=== PATIENT | male | born 1965 | race African-American/Black ===

== ENCOUNTER 2023-07-25 12:28 | Outpatient (CLI) | payer BC ==
[2023-07-25] MEDS ORDERED: E-Z-HD 98% W/W 340GM BOT (x-ray ONLY) ONE (12:44)
[2023-07-25] MEDS ORDERED: Barium Sulfate 96% 176 GM BOT (xray ONLY) ONE (12:44)
== END 2023-07-25 12:29 | disposition home or self-care (01) ==
LOC: RAD 12:28
PROVIDERS: ATTEND Specialist
DX: R13.19 Other dysphagia (principal); K22.89 Other specified disease of esophagus; Z98.1 Arthrodesis status
CPT/HCPCS: 74220

== ENCOUNTER 2024-05-18 08:05 | Outpatient (CLI) | payer BC ==
[2024-05-18] MEDS ORDERED: Iopamidol 370 76% 100 ML VIAL ONE (12:03)
== END 2024-05-18 08:06 | disposition home or self-care (01) ==
LOC: BICCT 08:05
PROVIDERS: ATTEND Specialist
DX: J38.01 Paralysis of vocal cords and larynx, unilateral (principal)
CPT/HCPCS: 71260